=== PATIENT | female | born 1950 | race African-American/Black ===

== ENCOUNTER 2018-05-01 12:33 | Emergency (ER) | payer MEDICARE, MEDICAID ==
[~2018-05-01] VITALS: Ht 165.1 cm; Wt 80.0 kg
[~2018-05-01 12:33] MED LIST: ALPR2TAB2 PO; AMLO10TA4 PO; ASPI-1159 PO; CILO100T PO; GABA-531 PO; LISI10TA5 PO; NAPR-681 PO; OXYC30TA89 PO; PENT400T11 PO; S350 PO
[2018-05-01] MEDS ORDERED: ALBUTEROL (0.083%) 2.5MG/3ML NEB HHN STA (13:38)
[2018-05-01] MEDS ORDERED: METHYLPREDNISOLONE SOD SUCC 125 MG/2 ML VIAL IV STA (13:38)
[2018-05-01] MEDS ORDERED: IPRATROPIUM BROMIDE (0.02%) 0.5MG/2.5ML NEB HHN STA (13:38)
[2018-05-01 13:46] LABS: CHLORIDE 106 mEq/L (98-107)
[2018-05-01 13:47] LABS: HEMATOCRIT. 41.3 % (36.0-48.0); HEMOGLOBIN. 13.9 g/dL (12.0-16.0); MEAN CORPUSCULAR HEMOGLOBIN 30.5 pg (28.0-32.0); MEAN CORPUSCULAR VOLUME 90.5 fL (81.0-99.0); MEAN PLATELET VOLUME 7.6 fl (7.4-10.4); PLATELET 266 x1000/uL (130-400); RED BLOOD CELL COUNT 4.56 mill/uL (4.2-5.4); RED CELL DISTRIBUTION WIDTH 13.3 % (11.6-14.6)
[2018-05-01 13:50] LABS: PARTIAL THROMBOPLASTIN TIME 24.6 sec (23.4-31.0); PROTHROMBIN TIME 10.4 sec (9.1-11.1)
[2018-05-01 14:11] LABS: PLATELET ESTIMATE NORMAL
[2018-05-01] MEDS ORDERED: PREDNISONE 20MG TABLET PO ONE (14:15)
[2018-05-01 14:46] VITALS: BP 167/93
== END 2018-05-01 14:50 | disposition home or self-care (01) ==
LOC: ER 12:33
DX: J44.1 Chronic obstructive pulmonary disease with (acute) exacerbation (principal); J20.9 Acute bronchitis, unspecified; J44.0 Chronic obstructive pulmonary disease with (acute) lower respiratory infection; I10 Essential (primary) hypertension
CPT/HCPCS: 36415; 71045; 80053; 83880; 84484; 85025; 85610; 85730; 87040; 94640; 99284; J2930; J7512; J7611

== ENCOUNTER 2021-05-16 17:02 | Emergency (ER) | payer MEDICARE, MEDICAID ==
[~2021-05-16] VITALS: Ht 167.6 cm; Wt 74.8 kg
[~2021-05-16 17:02] MED LIST changes: -ASPI-1159 PO; +ASPI-1497 PO; +CARI350T28 PO; -GABA-531 PO; +GABA-532 PO; +LISI10TA26 PO; -LISI10TA5 PO; +OXYC-582 PO; -OXYC30TA89 PO; -PENT400T11 PO; +PENT400T16 PO; -S350 PO
[2021-05-16] MEDS ORDERED: HYDRALAZINE 20MG/ML VIAL IV ONE (17:45)
[2021-05-16 19:31] LABS: HEMATOCRIT. 38.9 % (36.0-48.0); HEMOGLOBIN. 13.4 g/dL (12.0-16.0); MEAN CORPUSCULAR HEMOGLOBIN 30.9 pg (28.0-32.0); MEAN CORPUSCULAR VOLUME 90.1 fL (81.0-99.0); MEAN PLATELET VOLUME 7.6 fl (7.4-10.4); PLATELET 199 x1000/uL (130-400); RED BLOOD CELL COUNT 4.32 mill/uL (4.2-5.4); RED CELL DISTRIBUTION WIDTH 13.7 % (11.6-14.6)
[2021-05-16 19:36] LABS: CHLORIDE 107 mEq/L (98-107)
[2021-05-16 20:16] LABS: PLATELET ESTIMATE NORMAL
[2021-05-16 21:30] VITALS: BP 161/71
== END 2021-05-16 22:33 | disposition home or self-care (01) ==
LOC: ER 17:02
DX: I10 Essential (primary) hypertension (principal); G89.29 Other chronic pain; M79.604 Pain in right leg; M79.605 Pain in left leg; J44.9 Chronic obstructive pulmonary disease, unspecified; J45.909 Unspecified asthma, uncomplicated; Z86.19 Personal history of other infectious and parasitic diseases
CPT/HCPCS: 36415; 71045; 80048; 84484; 85025; 93005; 93970; 96374; 99285; J0360

== ENCOUNTER 2021-07-30 18:20 | Inpatient (IN) | payer MEDICARE, MEDICAID ==
[~2021-07-30] VITALS: Ht 167.6 cm; Wt 76.4 kg
[2021-07-30] MEDS ORDERED: ASPIRIN 81MG TABLET PO ONE (18:45)
[2021-07-30] MEDS ORDERED: NITROGLYCERIN 0.4MG TABLET SL SL PRN (18:45)
[2021-07-30 19:59] LABS: BASOPHILS % 0.6 % (0.0-2.0); EOSINOPHILS % 0.2 % (0.0-5.0); HEMATOCRIT. 39.4 % (36.0-48.0); HEMOGLOBIN. 13.1 g/dL (12.0-16.0); LYMPHOCYTES % 28.5 % (20.0-50.0); MEAN CORPUSCULAR HEMOGLOBIN 29.8 pg (28.0-32.0); MEAN CORPUSCULAR VOLUME 89.8 fL (81.0-99.0); MEAN PLATELET VOLUME 7.8 fl (7.4-10.4); MONOCYTES % 5.1 % (2.0-8.0); NEUTROPHILS % 65.6 % (40.0-76.0); PLATELET 208 x1000/uL (130-400); RED BLOOD CELL COUNT 4.38 mill/uL (4.2-5.4); RED CELL DISTRIBUTION WIDTH 13.2 % (11.6-14.6)
[2021-07-30 20:06] LABS: CHLORIDE 110 mEq/L (98-107)
[2021-07-30] MEDS ORDERED: ONDANSETRON 4MG ODT PO ONE ×2 (22:15→23:30)
[2021-07-30] MEDS ORDERED: ASPIRIN 81MG TABLET PO NR (22:30)
[2021-07-30] MEDS ORDERED: ACETAMINOPHEN WITH CODEINE 300/30MG TABLET PO ONE (23:45)
[2021-07-31] MEDS ORDERED: AMLODIPINE 5MG TABLET PO ONE ×2 (00:45→01:45)
[2021-07-31] MEDS ORDERED: LISINOPRIL 40MG TABLET PO ONE (01:45)
[2021-07-31] MEDS ORDERED: METOPROLOL TARTRATE 25MG TABLET PO SCH (04:00)
[2021-07-31] MEDS ORDERED: NITROGLYCERIN OINT 1GM/INCH UDPKT TD SCH (04:00)
[2021-07-31 04:29] VITALS: BP 172/82
[2021-07-31] MEDS ORDERED: CLONIDINE 0.1MG TABLET PO PRN (04:45)
[2021-07-31] MEDS ORDERED: DIPHENHYDRAMINE 50MG/ML VIAL IV PRN (04:45)
[2021-07-31] MEDS ORDERED: HEPARIN 25,000 UNITS PREMIX 250 ML IV SCH ×2 (04:45→08:15)
[2021-07-31] MEDS ORDERED: ONDANSETRON HCL 4MG/2ML INJ IV PRN (04:45)
[2021-07-31] MEDS ORDERED: ZOLPIDEM TARTRATE 5MG TABLET PO PRN (04:45)
[2021-07-31] MEDS ORDERED: IPRATROPIUM/ALBUTEROL 0.5-3(2.5)MG/3ML NEB HHN PRN (05:00)
[2021-07-31] MEDS: NITROGLYCERIN OINT 1GM/INCH UDPKT TD SCH ×3 (05:12→21:08)
[2021-07-31 05:52] VITALS: BP 175/82
[2021-07-31 07:55] LABS: BASOPHILS % 0.4 % (0.0-2.0); EOSINOPHILS % 0.5 % (0.0-5.0); HEMATOCRIT. 36.6 % (36.0-48.0); HEMOGLOBIN. 12.4 g/dL (12.0-16.0); LYMPHOCYTES % 45.3 % (20.0-50.0); MEAN CORPUSCULAR HEMOGLOBIN 30.1 pg (28.0-32.0); MEAN PLATELET VOLUME 7.9 fl (7.4-10.4); MONOCYTES % 7.4 % (2.0-8.0); NEUTROPHILS % 46.4 % (40.0-76.0); PLATELET 199 x1000/uL (130-400); RED BLOOD CELL COUNT 4.11 mill/uL (4.2-5.4); RED CELL DISTRIBUTION WIDTH 13.2 % (11.6-14.6)
[2021-07-31 08:00] VITALS: BP 121/68
[2021-07-31 08:06] LABS: CHLORIDE 111 mEq/L (98-107)
[2021-07-31] MEDS ORDERED: HEPARIN BOLUS PRN aPTT <30 IV (08:15)
[2021-07-31] MEDS ORDERED: HEPARIN BOLUS PRN aPTT 30-44 IV (08:15)
[2021-07-31 08:24] LABS: HDL CHOLESTEROL 60 mg/dL (40-59); LDL CHOLESTEROL 103 mg/dL (5-100)
[2021-07-31] MEDS: ASPIRIN 81MG EC TABLET PO SCH (08:58)
[2021-07-31] MEDS: LISINOPRIL 10MG TABLET PO SCH (08:58)
[2021-07-31] MEDS: PENTOXIFYLLINE 400MG TABLET PO SCH ×3 (08:58→16:37)
[2021-07-31] MEDS: METOPROLOL TARTRATE 25MG TABLET PO SCH ×2 (08:58→20:32)
[2021-07-31] MEDS: AMLODIPINE 10MG TABLET PO SCH (08:58)
[2021-07-31] MEDS: GABAPENTIN 300MG CAPSULE PO SCH ×3 (08:58→16:37)
[2021-07-31] MEDS: CLOPIDOGREL 75MG TABLET PO SCH (08:59)
[2021-07-31] MEDS ORDERED: HEPARIN 60 UNITS/KG BOLUS IV NR (09:00)
[2021-07-31] MEDS: ACETAMINOPHEN 325MG TABLET PO PRN ×2 (11:28→20:32)
[2021-07-31 11:54] VITALS: BP 133/75
[2021-07-31] MEDS ORDERED: POTASSIUM CHLORIDE 20MEQ TABLET SR PO NR (12:45)
[2021-07-31 15:45] VITALS: BP 135/71
[2021-07-31 20:00] VITALS: BP 114/72
[2021-07-31] MEDS: ATORVASTATIN CALCIUM 40MG TABLET PO SCH (20:31)
[2021-07-31] MEDS: ZOLPIDEM TARTRATE 5MG TABLET PO PRN (20:33)
[2021-07-31] MEDS: MAGNESIUM/ALUMINUM HYDROXIDE/SIMETHICONE 30ML UDC PO PRN (20:34)
[2021-08-01] VITALS (8 sets, daily range): BP systolic 112–163; BP diastolic 73–95
[2021-08-01] MEDS: ACETAMINOPHEN 325MG TABLET PO PRN (02:21)
[2021-08-01] MEDS: NITROGLYCERIN OINT 1GM/INCH UDPKT TD SCH ×3 (06:15→21:34)
[2021-08-01] MEDS ORDERED: HEPARIN SODIUM 1,000 UNIT/1ML VIAL IV ONE (06:23)
[2021-08-01] MEDS ORDERED: NITROGLYCERIN 50MCG/ML 10ML VIAL (CATH LAB) IV ONE (06:23)
[2021-08-01] MEDS ORDERED: NICARDIPINE 100MCG/ML 10ML VIAL (CATH LAB) IV ONE (06:23)
[2021-08-01 06:34] LABS: BASOPHILS % 0.5 % (0.0-2.0); EOSINOPHILS % 0.9 % (0.0-5.0); HEMATOCRIT. 38.9 % (36.0-48.0); HEMOGLOBIN. 13.1 g/dL (12.0-16.0); LYMPHOCYTES % 45.7 % (20.0-50.0); MEAN CORPUSCULAR HEMOGLOBIN 30.3 pg (28.0-32.0); MEAN CORPUSCULAR VOLUME 90.1 fL (81.0-99.0); MEAN PLATELET VOLUME 7.8 fl (7.4-10.4); MONOCYTES % 8.6 % (2.0-8.0); NEUTROPHILS % 44.3 % (40.0-76.0); PLATELET 210 x1000/uL (130-400); RED BLOOD CELL COUNT 4.32 mill/uL (4.2-5.4); RED CELL DISTRIBUTION WIDTH 13.2 % (11.6-14.6)
[2021-08-01 08:28] LABS: CHLORIDE 111 mEq/L (98-107)
[2021-08-01] MEDS: ASPIRIN 81MG EC TABLET PO SCH (08:39)
[2021-08-01] MEDS: CLOPIDOGREL 75MG TABLET PO SCH (08:40)
[2021-08-01] MEDS: PENTOXIFYLLINE 400MG TABLET PO SCH ×3 (08:40→18:00)
[2021-08-01] MEDS: GABAPENTIN 300MG CAPSULE PO SCH ×3 (08:40→18:00)
[2021-08-01] MEDS: METOPROLOL TARTRATE 25MG TABLET PO SCH (08:40)
[2021-08-01] MEDS: AMLODIPINE 10MG TABLET PO SCH (08:40)
[2021-08-01] MEDS: LISINOPRIL 10MG TABLET PO SCH (08:40)
[2021-08-01] MEDS: MAGNESIUM/ALUMINUM HYDROXIDE/SIMETHICONE 30ML UDC PO PRN (11:13)
[2021-08-01] MEDS ORDERED: ASPIRIN/SOD BICARB/CITRIC ACID 324MG TAB EFF ONE (12:02)
[2021-08-01] MEDS ORDERED: VERAPAMIL HCL 2.5 MG/1 ML 2ML VIAL IV ONE (12:25)
[2021-08-01] MEDS ORDERED: MIDAZOLAM HCL 2 MG/2 ML VIAL ONE (12:25)
[2021-08-01] MEDS ORDERED: FENTANYL CITRATE/PF 50MCG/ML 2ML VIAL ONE (12:25)
[2021-08-01] MEDS ORDERED: LIDOCAINE HCL 1% 10 MG/ML 10ML VIAL ONE (12:26)
[2021-08-01] MEDS ORDERED: IODIXANOL 320MG/ML 100 ML BOTTLE IV ONE (12:34)
[2021-08-01] MEDS ORDERED: ONDANSETRON HCL 4MG/2ML INJ IV PRN (13:15)
[2021-08-01] MEDS ORDERED: ATROPINE SULFATE 1MG/10ML SYR IV PRN (13:15)
[2021-08-01] MEDS ORDERED: ACETAMINOPHEN 325MG TABLET PO PRN (13:15)
[2021-08-01] MEDS ORDERED: SODIUM CHLORIDE 0.45% 1,000 ML IV SCH (14:00)
[2021-08-01] MEDS: ATORVASTATIN CALCIUM 40MG TABLET PO SCH (21:31)
[2021-08-01] MEDS: METOPROLOL TARTRATE 50MG TABLET PO SCH (21:33)
[2021-08-01] MEDS: ZOLPIDEM TARTRATE 5MG TABLET PO PRN (22:02)
[2021-08-02] VITALS (12 sets, daily range): BP systolic 108–161; BP diastolic 62–97
[2021-08-02] MEDS: MORPHINE SULFATE 2 MG/ML CPJ (NOT FOR IM USE) IV PRN (04:26)
[2021-08-02 06:07] LABS: CHLORIDE 112 mEq/L (98-107)
[2021-08-02] MEDS: NITROGLYCERIN OINT 1GM/INCH UDPKT TD SCH ×3 (06:35→21:46)
[2021-08-02] MEDS ORDERED: ASPIRIN/SOD BICARB/CITRIC ACID 324MG TAB EFF ONE (07:22)
[2021-08-02] MEDS ORDERED: FENTANYL CITRATE/PF 50MCG/ML 2ML VIAL ONE ×2 (07:27→08:29)
[2021-08-02] MEDS ORDERED: IODIXANOL 320MG/ML 100 ML BOTTLE IV ONE (07:28)
[2021-08-02] MEDS ORDERED: MIDAZOLAM HCL 2 MG/2 ML VIAL ONE ×2 (07:28→08:13)
[2021-08-02] MEDS ORDERED: HEPARIN 1000 UNITS/ML 10ML ONE (07:28)
[2021-08-02] MEDS ORDERED: LIDOCAINE HCL/PF 1% 10 MG/ML 5ML VIAL ONE (07:29)
[2021-08-02] MEDS ORDERED: ATROPINE SULFATE 1MG/10ML SYR ONE (07:36)
[2021-08-02] MEDS ORDERED: IODIXANOL 320 MG/ML 150ML BOTTLE IV ONE (09:04)
[2021-08-02] MEDS ORDERED: CLOPIDOGREL 75MG TABLET ONE (10:07)
[2021-08-02] MEDS ORDERED: ACETAMINOPHEN 325MG TABLET PO PRN (10:30)
[2021-08-02] MEDS ORDERED: SODIUM CHLORIDE 0.45% 1,000 ML IV ONE (10:45)
[2021-08-02] MEDS: GABAPENTIN 300MG CAPSULE PO SCH ×3 (10:52→18:13)
[2021-08-02] MEDS: AMLODIPINE 10MG TABLET PO SCH (10:53)
[2021-08-02] MEDS: PENTOXIFYLLINE 400MG TABLET PO SCH ×3 (10:53→18:13)
[2021-08-02] MEDS: LISINOPRIL 10MG TABLET PO SCH (10:53)
[2021-08-02] MEDS: METOPROLOL TARTRATE 50MG TABLET PO SCH ×2 (10:53→21:45)
[2021-08-02 12:13] LABS: BASOPHILS % 0.3 % (0.0-2.0); EOSINOPHILS % 0.4 % (0.0-5.0); HEMOGLOBIN. 12.4 g/dL (12.0-16.0); MEAN CORPUSCULAR HEMOGLOBIN 29.9 pg (28.0-32.0); MEAN CORPUSCULAR VOLUME 89.6 fL (81.0-99.0); MEAN PLATELET VOLUME 7.8 fl (7.4-10.4); MONOCYTES % 6.6 % (2.0-8.0); NEUTROPHILS % 45.7 % (40.0-76.0); PLATELET 210 x1000/uL (130-400); RED BLOOD CELL COUNT 4.13 mill/uL (4.2-5.4); RED CELL DISTRIBUTION WIDTH 13.1 % (11.6-14.6)
[2021-08-02] MEDS ORDERED: NALOXONE HCL 0.4MG/ML VIAL IV PRN (14:15)
[2021-08-02] MEDS: ATORVASTATIN CALCIUM 40MG TABLET PO SCH (21:43)
[2021-08-03] VITALS (8 sets, daily range): BP systolic 137–166; BP diastolic 69–94
[2021-08-03] MEDS: MORPHINE SULFATE 2 MG/ML CPJ (NOT FOR IM USE) IV PRN ×3 (02:43→12:00)
[2021-08-03] MEDS: NITROGLYCERIN OINT 1GM/INCH UDPKT TD SCH (06:44)
[2021-08-03 07:52] LABS: CHLORIDE 110 mEq/L (98-107)
[2021-08-03] MEDS: GABAPENTIN 300MG CAPSULE PO SCH (08:17)
[2021-08-03] MEDS: PENTOXIFYLLINE 400MG TABLET PO SCH (08:17)
[2021-08-03] MEDS: AMLODIPINE 10MG TABLET PO SCH (08:17)
[2021-08-03] MEDS: LISINOPRIL 10MG TABLET PO SCH (08:17)
[2021-08-03] MEDS: METOPROLOL TARTRATE 50MG TABLET PO SCH (08:18)
[2021-08-03] MEDS ORDERED: CLOPIDOGREL 75MG TABLET PO SCH (09:00)
[2021-08-03] MEDS ORDERED: LISINOPRIL 10MG TABLET PO NR (09:00)
[2021-08-03] MEDS ORDERED: ASPIRIN 81MG TABLET PO SCH (09:00)
[2021-08-03] MEDS ORDERED: LISI20TA31 PO (11:28)
[2021-08-03] MEDS ORDERED: LIP40 PO (11:28)
[2021-08-03] MEDS ORDERED: METO-539 PO (11:28)
[2021-08-04] MEDS ORDERED: LISINOPRIL 20MG TABLET PO SCH (09:00)
== END 2021-08-03 14:32 | disposition home health service (06) | DRG 247 ==
LOC: ER 18:20 → 8WST 22:07 → EDBEDREQ 22:37 → EDBEDREQTM 22:37 → ENRESERV 22:46 → 8WST 07-31 05:07 → 3WST 08-01 13:34
PROVIDERS: ADMIT Internal Medicine; ATTEND Internal Medicine
PROC: 4A023N7 Measurement of Cardiac Sampling and Pressure, Left Heart, Percutaneous Approach (ICD-10-PCS; 2021-08-01)
PROC: B2111ZZ Fluoroscopy of Multiple Coronary Arteries using Low Osmolar Contrast (ICD-10-PCS; 2021-08-01)
PROC: B54NZZA Ultrasonography of Left Upper Extremity Veins, Guidance (ICD-10-PCS; 2021-08-01)
PROC: 05HY33Z Insertion of Infusion Device into Upper Vein, Percutaneous Approach (ICD-10-PCS; 2021-08-01)
PROC: 027034Z Dilation of Coronary Artery, One Artery with Drug-eluting Intraluminal Device, Percutaneous Approach (ICD-10-PCS; principal; 2021-08-02)
PROC: 4A023N7 Measurement of Cardiac Sampling and Pressure, Left Heart, Percutaneous Approach (ICD-10-PCS; 2021-08-02)
PROC: B2111ZZ Fluoroscopy of Multiple Coronary Arteries using Low Osmolar Contrast (ICD-10-PCS; 2021-08-02)
DX: I21.4 Non-ST elevation (NSTEMI) myocardial infarction (principal); G47.33 Obstructive sleep apnea (adult) (pediatric); I11.9 Hypertensive heart disease without heart failure; J44.9 Chronic obstructive pulmonary disease, unspecified; I25.10 Atherosclerotic heart disease of native coronary artery without angina pectoris; K75.9 Inflammatory liver disease, unspecified; F17.200 Nicotine dependence, unspecified, uncomplicated; Z20.822 Contact with and (suspected) exposure to COVID-19; Z90.710 Acquired absence of both cervix and uterus; Z79.02 Long term (current) use of antithrombotics/antiplatelets; Z79.899 Other long term (current) drug therapy; Z90.49 Acquired absence of other specified parts of digestive tract; Z98.891 History of uterine scar from previous surgery; Z79.01 Long term (current) use of anticoagulants; Z79.82 Long term (current) use of aspirin
CPT/HCPCS: 36415; 36573; 71045; 80048; 80053; 80061; 83735; 83880; 84443; 84484; 85025; 85347; 87426; 92928; 93005; 93306; 93458; 99291; C1725; C1769; C1874; C1887; C1893; J0461; J1644; J2250; J2270; J2405; J3010; J3490; Q0162; Q9967; C1761

== ENCOUNTER 2021-09-19 09:35 | Emergency (ER) | payer MEDICARE, MEDICAID ==
[~2021-09-19] VITALS: Ht 170.2 cm; Wt 73.0 kg
[~2021-09-19 09:35] MED LIST changes: -AMLO10TA4 PO; +LIP40 PO; -LISI10TA26 PO; +LISI20TA31 PO; +METO-539 PO
[2021-09-19 10:40] LABS: HEMATOCRIT. 36.5 % (36.0-48.0); HEMOGLOBIN. 12.1 g/dL (12.0-16.0); MEAN CORPUSCULAR HEMOGLOBIN 30.3 pg (28.0-32.0); MEAN CORPUSCULAR VOLUME 91.2 fL (81.0-99.0); MEAN PLATELET VOLUME 7.3 fl (7.4-10.4); PLATELET 226 x1000/uL (130-400); RED CELL DISTRIBUTION WIDTH 13.9 % (11.6-14.6)
[2021-09-19 10:43] LABS: CHLORIDE 107 mEq/L (98-107)
[2021-09-19] MEDS ORDERED: HYDRALAZINE HCL 10MG TABLET PO ONE (11:00)
[2021-09-19 11:03] LABS: PLATELET ESTIMATE NORMAL
[2021-09-19] MEDS ORDERED: LISI20TA31 MT (11:53)
[2021-09-19] MEDS ORDERED: METO-539 MT (11:53)
[2021-09-19 12:36] VITALS: BP 181/80
== END 2021-09-19 12:44 | disposition home or self-care (01) ==
LOC: ER 09:35
DX: I10 Essential (primary) hypertension (principal); Z79.899 Other long term (current) drug therapy
CPT/HCPCS: 36415; 80053; 85025; 99284

== ENCOUNTER 2022-03-18 10:27 | Emergency (ER) | payer MEDICARE, MEDICAID ==
[~2022-03-18] VITALS: Ht 167.6 cm; Wt 70.0 kg
[~2022-03-18 10:27] MED LIST changes: -ALPR2TAB2 PO; +AMLO10TA80 PO; -CARI350T28 PO; -CILO100T PO; -GABA-532 PO; +HYDR25TA PO; -LISI20TA31 PO; +LOSA50TA3 PO; -NAPR-681 PO; -OXYC-582 PO; -PENT400T16 PO
[2022-03-18] MEDS ORDERED: KETOROLAC 60MG/2ML VIAL IM STA (10:37)
[2022-03-18] MEDS ORDERED: CYCL10TA21 MT (14:03)
[2022-03-18] MEDS ORDERED: IBUP-2029 MT (14:03)
[2022-03-18 14:18] VITALS: BP 162/94
== END 2022-03-18 14:24 | disposition home or self-care (01) ==
LOC: ER 10:41
DX: M25.562 Pain in left knee (principal); M25.511 Pain in right shoulder; M25.561 Pain in right knee; R07.89 Other chest pain; G89.11 Acute pain due to trauma; I10 Essential (primary) hypertension
CPT/HCPCS: 71101; 73030; 73560; 96372; 99284; J1885

== ENCOUNTER 2023-07-10 11:58 | Emergency (ER) | payer MEDICARE ==
[~2023-07-10] VITALS: Ht 165.1 cm; Wt 73.0 kg
[~2023-07-10 11:58] MED LIST changes: +CYCL10TA21 MT; +IBUP-2029 MT; +LOSA-413 PO; -LOSA50TA3 PO; +lisinopril
[2023-07-10 11:59] VITALS: O2SAT 97
[2023-07-10 12:43] LABS: BASOPHILS % 1.8 % (0.0-2.0); EOSINOPHILS % 2.9 % (0.0-5.0); HEMATOCRIT. 34.1 % (36.0-48.0); HEMOGLOBIN. 11.2 g/dL (12.0-16.0); LYMPHOCYTES % 54.8 % (20.0-50.0); MEAN CORPUSCULAR HEMOGLOBIN 30.4 pg (28.0-32.0); MEAN CORPUSCULAR HGB CONC 32.8 g/dL (31.0-37.0); MEAN CORPUSCULAR VOLUME 92.7 fL (81.0-99.0); MEAN PLATELET VOLUME 7.5 fl (7.4-10.4); NEUTROPHILS % 31.5 % (40.0-76.0); PLATELET 226 x1000/uL (130-400); RED BLOOD CELL COUNT 3.67 mill/uL (4.2-5.4); RED CELL DISTRIBUTION WIDTH 13.9 % (11.6-14.6); WHITE BLOOD COUNT 5.3 x1000/uL (4.5-11.0)
[2023-07-10] MEDS: MORPHINE SULFATE 4 MG/ML INJ (FOR IV/IM USE) IV ONE (12:45)
[2023-07-10] MEDS: ONDANSETRON HCL 4MG/2ML INJ IV ONE (12:45)
[2023-07-10 12:52] LABS: CARBON DIOXIDE 24 mEq/L (21-32); CHLORIDE 110 mEq/L (98-107); POTASSIUM 4.6 mEq/L (3.5-5.1); SODIUM 138 mEq/L (136-145)
[2023-07-10 12:55] LABS: CREATININE 0.7 mg/dL (0.6-1.0); GLUCOSE 86 mg/dL (70-105); UREA NITROGEN BLOOD 13 mg/dL (9-23)
[2023-07-10 13:06] LABS: TROPONIN I HIGH SENSITIVITY < 4 ng/L (3.0-34)
[2023-07-10 15:22] LABS: INR 0.9; PROTHROMBIN TIME 10.5 sec (9.6-11.0)
[2023-07-10 17:44] LABS: ALANINE AMINOTRANSFERASE 33 IU/L (10-49); ALBUMIN 3.4 g/dL (3.2-4.8); ASPARTATE AMINOTRANSFERASE 42 IU/L (<34); BILIRUBIN DIRECT 0.2 mg/dL (<=3.0); BILIRUBIN TOTAL 0.5 mg/dL (0.1-1.0); PROTEIN TOTAL 6.1 g/dL (6.0-8.3)
[2023-07-10 18:53] LABS: TROPONIN I HIGH SENSITIVITY < 4 ng/L (3.0-34)
[2023-07-10 21:56] LABS: TROPONIN I HIGH SENSITIVITY < 4 ng/L (3.0-34)
[2023-07-10 22:37] VITALS: BP 182/99; PULSE 95; RESP 15; TEMP 98.2
== END 2023-07-10 23:00 | disposition short-term general hospital (02) ==
LOC: ER 12:18 → EDBEDREQTM 20:41 → EDBEDREQ 20:41 → ER 23:00
DX: R07.89 Other chest pain (principal); I25.2 Old myocardial infarction; I10 Essential (primary) hypertension; J45.909 Unspecified asthma, uncomplicated
CPT/HCPCS: 99285; 96374; 71045; 96375; 80076; 80048; 83880; 85025; 85610; 84484; 93005; 36415; J2405; J2270

== ENCOUNTER 2023-10-27 09:38 | Inpatient (IN) | payer MEDICARE, OTHER ==
[~2023-10-27] VITALS: Ht 162.6 cm; Wt 76.3 kg
[2023-10-27 11:25] LABS: BASOPHILS % 0.4 % (0.0-2.0); EOSINOPHILS % 0.7 % (0.0-5.0); HEMOGLOBIN. 11.5 g/dL (12.0-16.0); LYMPHOCYTES % 22.9 % (20.0-50.0); MEAN CORPUSCULAR HEMOGLOBIN 29.4 pg (28.0-32.0); MEAN CORPUSCULAR HGB CONC 33.8 g/dL (31.0-37.0); MEAN CORPUSCULAR VOLUME 86.9 fL (81.0-99.0); MEAN PLATELET VOLUME 7.3 fl (7.4-10.4); MONOCYTES % 7.9 % (2.0-8.0); NEUTROPHILS % 68.1 % (40.0-76.0); PLATELET 204 x1000/uL (130-400); RED BLOOD CELL COUNT 3.92 mill/uL (4.2-5.4); RED CELL DISTRIBUTION WIDTH 13.7 % (11.6-14.6); WHITE BLOOD COUNT 8.5 x1000/uL (4.5-11.0)
[2023-10-27 11:48] LABS: CHLORIDE 106 mEq/L (98-107); POTASSIUM 3.7 mEq/L (3.5-5.1); SODIUM 138 mEq/L (136-145)
[2023-10-27 11:49] LABS: CALCIUM 9.4 mg/dL (8.7-10.4); CARBON DIOXIDE 27 mEq/L (21-32)
[2023-10-27 11:54] LABS: CREATININE 0.9 mg/dL (0.6-1.0); GLUCOSE 104 mg/dL (70-105); UREA NITROGEN BLOOD 14 mg/dL (9-23)
[2023-10-27 11:55] LABS: TROPONIN I HIGH SENSITIVITY 5 ng/L (3.0-34)
[2023-10-27] MEDS: ASPIRIN 81MG EC TABLET PO SCH (15:03)
[2023-10-27] MEDS: AMLODIPINE 5MG TABLET PO SCH (15:03)
[2023-10-27 17:03] VITALS: BP 93/60; PULSE 66; RESP 16; TEMP 37.11408; O2SAT 98
[2023-10-27 17:10] VITALS: BP 93/60; PULSE 66; RESP 18; TEMP 36.0844
[2023-10-27 20:00] VITALS: BP 102/65; PULSE 62; RESP 17; TEMP 36.44736; O2SAT 99
[2023-10-27] MEDS: METOPROLOL TARTRATE 50MG TABLET PO SCH (21:00)
[2023-10-27] MEDS: ATORVASTATIN CALCIUM 40MG TABLET PO SCH (21:37)
[2023-10-27] MEDS: ACETAMINOPHEN 325MG TABLET PO PRN (23:38)
[2023-10-27] MEDS ORDERED: ONDANSETRON HCL 4MG/2ML INJ IV PRN (23:45)
[2023-10-27] MEDS ORDERED: CLONIDINE 0.1MG TABLET PO PRN (23:45)
[2023-10-28] VITALS (7 sets, daily range): BP systolic 90–103; BP diastolic 59–75; PULSE 63–85; RESP 15–22; TEMP 36.3918–36.78072; O2SAT 94–99
[2023-10-28] MEDS: ASPIRIN 81MG EC TABLET PO SCH (00:36)
[2023-10-28] MEDS: HYDROCODONE/ACETAMINOPHEN 5/325MG TABLET PO PRN (00:37)
[2023-10-28 07:05] LABS: CHLORIDE 107 mEq/L (98-107); POTASSIUM 3.8 mEq/L (3.5-5.1); SODIUM 140 mEq/L (136-145)
[2023-10-28 07:06] LABS: CALCIUM 8.7 mg/dL (8.7-10.4); CARBON DIOXIDE 27 mEq/L (21-32)
[2023-10-28 07:11] LABS: CREATININE 0.9 mg/dL (0.6-1.0); GLUCOSE 123 mg/dL (70-105); TRIGLYCERIDE 109 mg/dL (0-150); UREA NITROGEN BLOOD 24 mg/dL (9-23)
[2023-10-28 07:12] LABS: LDL CHOLESTEROL 83 mg/dL (5-100)
[2023-10-28 07:13] LABS: CHOLESTEROL 141 mg/dL (<200); HDL CHOLESTEROL 42 mg/dL (>65)
[2023-10-28 07:16] LABS: BASOPHILS % 0.5 % (0.0-2.0); EOSINOPHILS % 2.2 % (0.0-5.0); HEMATOCRIT. 32.8 % (36.0-48.0); HEMOGLOBIN. 11.2 g/dL (12.0-16.0); LYMPHOCYTES % 44.2 % (20.0-50.0); MEAN CORPUSCULAR HEMOGLOBIN 30.1 pg (28.0-32.0); MEAN CORPUSCULAR VOLUME 88.3 fL (81.0-99.0); MONOCYTES % 9.7 % (2.0-8.0); NEUTROPHILS % 43.4 % (40.0-76.0); PLATELET 181 x1000/uL (130-400); RED BLOOD CELL COUNT 3.71 mill/uL (4.2-5.4); RED CELL DISTRIBUTION WIDTH 13.7 % (11.6-14.6); WHITE BLOOD COUNT 5.6 x1000/uL (4.5-11.0)
[2023-10-28 07:19] LABS: TROPONIN I HIGH SENSITIVITY < 4 ng/L (3.0-34)
[2023-10-28 07:28] LABS: HEPATITIS B SURFACE ANTIGEN NEGATIVE (Negative)
[2023-10-28 07:49] LABS: HEPATITIS C AB REACTIVE (Pos) (Negative)
[2023-10-28] MEDS: LOSARTAN 50 MG TABLET PO SCH (09:50)
[2023-10-28] MEDS: ENOXAPARIN 40MG/0.4ML SYR SUBCUT SCH (09:53)
[2023-10-28] MEDS: ATORVASTATIN CALCIUM 20MG TABLET PO SCH (20:55)
[2023-10-28] MEDS: IPRATROPIUM/ALBUTEROL 0.5-3(2.5)MG/3ML NEB HHN PRN (22:15)
[2023-10-29] VITALS (7 sets, daily range): BP systolic 95–121; BP diastolic 68–87; PULSE 73–106; RESP 13–20; TEMP 36.3918–36.89184; O2SAT 96–98
[2023-10-29 10:31] LABS: TROPONIN I HIGH SENSITIVITY < 4 ng/L (3.0-34)
[2023-10-29] MEDS ORDERED: NALOXONE HCL 0.4MG/ML VIAL IV PRN (15:00)
[2023-10-29] MEDS ORDERED: ACETAMINOPHEN 325MG TABLET PO PRN (15:00)
[2023-10-29] MEDS ORDERED: IOHEXOL-350 100 ML BOTTLE ONE (16:52)
[2023-10-30] VITALS: BP 125/79; PULSE 62; RESP 16; TEMP 36.78072; O2SAT 97
[2023-10-30 04:00] VITALS: BP 121/82; PULSE 64; RESP 12; TEMP 36.61404; O2SAT 99
[2023-10-30 08:00] VITALS: BP 106/83; PULSE 76; RESP 14; TEMP 36.55848; O2SAT 95
[2023-10-30 12:00] VITALS: BP 117/82; PULSE 80; RESP 16; TEMP 36.6696; TEMP 36.66960; O2SAT 97
[2023-10-30 12:21] LABS: BASOPHILS % 0.7 % (0.0-2.0); EOSINOPHILS % 2.3 % (0.0-5.0); HEMATOCRIT. 35.8 % (36.0-48.0); HEMOGLOBIN. 11.6 g/dL (12.0-16.0); LYMPHOCYTES % 42.5 % (20.0-50.0); MEAN CORPUSCULAR HEMOGLOBIN 28.9 pg (28.0-32.0); MEAN CORPUSCULAR HGB CONC 32.5 g/dL (31.0-37.0); MEAN CORPUSCULAR VOLUME 88.7 fL (81.0-99.0); MEAN PLATELET VOLUME 7.9 fl (7.4-10.4); MONOCYTES % 9.1 % (2.0-8.0); NEUTROPHILS % 45.4 % (40.0-76.0); PLATELET 229 x1000/uL (130-400); RED BLOOD CELL COUNT 4.03 mill/uL (4.2-5.4); RED CELL DISTRIBUTION WIDTH 14.1 % (11.6-14.6); WHITE BLOOD COUNT 5.2 x1000/uL (4.5-11.0)
[2023-10-30 12:25] LABS: CARBON DIOXIDE 28 mEq/L (21-32); CHLORIDE 107 mEq/L (98-107); POTASSIUM 4.4 mEq/L (3.5-5.1); SODIUM 140 mEq/L (136-145)
[2023-10-30 12:26] LABS: CALCIUM 9.2 mg/dL (8.7-10.4)
[2023-10-30] MEDS: AMLODIPINE 10MG TABLET PO SCH (12:29)
[2023-10-30 12:30] LABS: CREATININE 0.8 mg/dL (0.6-1.0)
[2023-10-30 12:31] LABS: GLUCOSE 114 mg/dL (70-105); UREA NITROGEN BLOOD 17 mg/dL (9-23)
[2023-10-30 13:33] LABS: TROPONIN I HIGH SENSITIVITY < 4 ng/L (3.0-34)
[2023-10-30 14:29] VITALS: BP 117/82; PULSE 80; TEMP 98; O2SAT 98
== END 2023-10-30 15:19 | disposition home or self-care (01) | DRG 313 ==
LOC: ER 09:52 → 5WST 11:48 → EDBEDREQ 12:31 → EDBEDREQTM 12:31 → 3WST 16:44
PROVIDERS: ADMIT Internal Medicine; ATTEND Internal Medicine
DX: R07.89 Other chest pain (principal); I10 Essential (primary) hypertension; E78.5 Hyperlipidemia, unspecified; J44.89 Other specified chronic obstructive pulmonary disease; I25.10 Atherosclerotic heart disease of native coronary artery without angina pectoris; Z95.5 Presence of coronary angioplasty implant and graft; I25.2 Old myocardial infarction; Z79.899 Other long term (current) drug therapy; Z79.82 Long term (current) use of aspirin
CPT/HCPCS: 36415; 71045; 71275; 80048; 80061; 83880; 84443; 84484; 85025; 85379; 86705; 87340; 93005; 93970; 94640; 99291; J1650; Q9967